=== PATIENT | female | born 1965 | race Caucasian/White ===

== ENCOUNTER → 2016-12-06 | Outpatient (CLI) | payer OTHER ==
[~2016-12-06] MED LIST: BENICAR20 MG PO; LEVOTHROID,S0.137 MG PO; LEVOTHYROXINE137 MCG PO; PROTONIX IV40 MG PO; RITALIN5 MG PO; TRAMADOL HCL50 MG PO; WELLBUTRIN SR150 MG PO
== END | disposition home or self-care (01) ==
LOC: CDC 14:38
DX: Z01.810 Encounter for preprocedural cardiovascular examination (principal); M54.12 Radiculopathy, cervical region
CPT/HCPCS: 93000

== ENCOUNTER 2016-12-27 17:17 | Emergency (ER) | payer OTHER ==
[~2016-12-27] VITALS: Ht 177.8 cm; Wt 86.9 kg
[2016-12-27 17:51] LABS: MCH 30.4 PG (29.0-34.0); MCHC 34.7 G/DL (30.0-36.0); MCV 87.6 FL (83-99); MEAN PLAT.VOLUME 10.1 uM^3 (9.5-12.4); PLATELET COUNT 307 K/uL (156-360); RBC DIS.WIDTH-SD 42.2 % (39-53); RED BLOOD COUNT 3.88 M/uL (3.80-5.20); WHITE BLOOD COUNT 8.4 K/uL (4.1-10.2)
[2016-12-27 18:04] LABS: CHLORIDE 107 mEq/L (99-109); SODIUM 135 mEq/L (136-147)
[2016-12-27 18:06] LABS: GLUCOSE 101 mg/dL (70-99)
[2016-12-27 18:07] LABS: ANION GAP 9 MEQ/L (2-14)
[2016-12-27 18:10] LABS: GFR ESTIMATE (CALCULATED) 50 mL/min/
[2016-12-27 18:11] LABS: UREA NITROGEN (BUN) 16 mg/dL (9-23)
[2016-12-27 18:16] LABS: TROP-I INTERPRETATION NEGATIVE; TROPONIN-I < 0.01 ng/mL (0.0-0.30)
[2016-12-27 19:50] LABS: ADD MIUA? YES; BILIRUBIN NEGATIVE; BLOOD SMALL; COLOR STRAW ((YELLOW)); GLUCOSE (STRIP) NEGATIVE; KETONES NEGATIVE; LEUKOCYTES NEGATIVE; NITRITE NEGATIVE; PROTEIN (STRIP) NEGATIVE; SPECIFIC GRAVITY 1.006 (1.000-1.030); UROBILINOGEN 0.2 MG/DL (0.2-1.0)
[2016-12-27 20:12] LABS: BACTERIA NONE SEEN /HPF; EPITHELIAL CELLS NONE SEEN /HPF; MUCUS NONE SEEN /LPF; RED BLOOD CELLS 0-5 /HPF (0-5); WHITE BLOOD CELLS 0-5 /HPF (0-5)
[2016-12-27] MEDS ORDERED: PEPCID20 MG PO (20:48)
[2016-12-27] MEDS ORDERED: BENADRYL50 MG PO (20:48)
[2016-12-27 21:23] VITALS: BP 150/93
== END 2016-12-27 21:24 | disposition home or self-care (01) ==
LOC: EME 17:17
PROVIDERS: Physician Assistant
DX: T50.905A Adverse effect of unspecified drugs, medicaments and biological substances, initial encounter (principal); F41.9 Anxiety disorder, unspecified; Z88.1 Allergy status to other antibiotic agents
CPT/HCPCS: 80048; 81003; 84484; 85027; 87651 90; 93005; 99281; 99285; J1200; J7030

== ENCOUNTER → 2018-01-01 | Outpatient (CLI) | payer OTHER ==
[~2018-01-01] MED LIST changes: +BENADRYL50 MG PO; +PEPCID20 MG PO
== END | disposition home or self-care (01) ==
LOC: CDC 15:28
DX: Z01.810 Encounter for preprocedural cardiovascular examination (principal); M99.82 Other biomechanical lesions of thoracic region
CPT/HCPCS: 93000